=== PATIENT | male | born 1990 | race Caucasian/White ===

== ENCOUNTER 2020-03-04 23:55 | Emergency (ER) | payer SELFPAY ==
[~2020-03-04] VITALS: Ht 180.3 cm; Wt 113.6 kg
[2020-03-05 00:14] VITALS: Ht 180.3 cm; Wt 113.6 kg
[2020-03-05 00:50] VITALS: BP 122/74
== END 2020-03-05 00:40 | disposition home or self-care (01) ==
LOC: D.ER 23:55
DX: T16.2XXA Foreign body in left ear, initial encounter (principal); X58.XXXA Exposure to other specified factors, initial encounter